=== PATIENT | male | born 1980 | race Caucasian/White ===

== ENCOUNTER 2018-06-03 14:30 | Emergency (ER) | payer MEDICARE ==
[~2018-06-03] VITALS: Ht 188 cm; Wt 145.5 kg
[2018-06-03 14:57] VITALS: Ht 188 cm; Wt 145.5 kg
[2018-06-03] MEDS ORDERED: ADDERALL 30 MG30 MG PO (15:02)
[2018-06-03] MEDS ORDERED: KLONOPIN1 MG PO (15:02)
[2018-06-03] MEDS ORDERED: KEPPRA1000 MG PO (15:02)
[2018-06-03] MEDS ORDERED: AMBIEN10 MG PO (15:03)
[2018-06-03 16:03] LABS: ALBUMIN 3.6 g/dL (3.4-5.0); ALKALINE PHOSPHATASE 164 U/L (46-116); ALT (SGPT) 27 U/L (10-68); BILIRUBIN - TOTAL 0.45 mg/dL (0.2-1.3); CALC OSMOLALITY 271 mosm/kg (275-300); CALCIUM 9.8 mg/dL (8.5-10.1); CARBON DIOXIDE 34.6 mmol/L (21.0-32.0); CHLORIDE - SERUM 101 mmol/L (98-107); CREATININE - SERUM 0.6 mg/dL (0.6-1.3); GLUCOSE 142 mg/dL (74-106); POTASSIUM - SERUM 4.9 mmol/L (3.5-5.1); PROTEIN - SERUM 8.9 g/dL (6.4-8.2); SODIUM 136 mmol/L (136-145); UREA NITROGEN 6 mg/dL (7-18); eGFR NON AFRICAN AMERICAN > 90 mL/min (90-120)
[2018-06-03 16:29] LABS: APPEARANCE CLEAR (CLEAR); BILIRUBIN NEGATIVE (NEGATIVE); COLOR YELLOW (YELLOW); GLUCOSE NEGATIVE (NEGATIVE); KETONE NEGATIVE (NEGATIVE); NITRITE NEGATIVE (NEGATIVE); PROTEIN NEGATIVE (NEGATIVE); UROBILINOGEN NORMAL (NORMAL); WHITE CELLS - URINE 0-5 /hpf (0-5)
[2018-06-03 16:30] LABS: BACTERIA FEW /hpf (NONE SEEN); EPITHELIAL CELLS OCC /hpf (0-5); RED CELLS - URINE RARE /hpf (0-5)
[2018-06-03 18:38] VITALS: BP 128/85
[2018-06-25] MEDS ORDERED: GLUCOPHAGE500 MG PO (10:57)
[2018-07-18 17:14] VITALS: Ht 188 cm; Wt 145.5 kg
== END 2018-06-03 18:25 | disposition home or self-care (01) ==
LOC: D.ER 14:30
PROVIDERS: Family Medicine
DX: K42.9 Umbilical hernia without obstruction or gangrene (principal); K57.90 Diverticulosis of intestine, part unspecified, without perforation or abscess without bleeding; B19.20 Unspecified viral hepatitis C without hepatic coma; Z87.820 Personal history of traumatic brain injury; G40.909 Epilepsy, unspecified, not intractable, without status epilepticus; F17.200 Nicotine dependence, unspecified, uncomplicated

== ENCOUNTER 2018-06-26 06:00 | Day surgery (SDC) | payer MEDICARE ==
[2018-06-25 11:58] LABS: HEMATOCRIT 44.5 % (42.0-54.0); MCH 28.6 pg (26.0-34.0); MCHC 33.7 g/dL (31.0-37.0); MCV 84.9 fL (80.0-100.0); MEAN PLATELET VOLUME 10.4 fL (7.4-10.4); RBC 5.24 10x6/uL (4.20-6.10); RDW 14.3 % (11.5-14.5); WBC 10.4 10x3/uL (4.8-10.8)
[2018-06-25 12:02] LABS: CALC OSMOLALITY 278 mosm/kg (275-300); CALCIUM 8.2 mg/dL (8.5-10.1); CARBON DIOXIDE 30.7 mmol/L (21.0-32.0); CHLORIDE - SERUM 104 mmol/L (98-107); CREATININE - SERUM 0.8 mg/dL (0.6-1.3); GLUCOSE 168 mg/dL (74-106); POTASSIUM - SERUM 4.4 mmol/L (3.5-5.1); SODIUM 138 mmol/L (136-145); UREA NITROGEN 9 mg/dL (7-18); eGFR NON AFRICAN AMERICAN > 90 mL/min (90-120)
[~2018-06-26] VITALS: Ht 188 cm; Wt 151.5 kg
[~2018-06-26 06:00] MED LIST: ADDERALL 30 MG30 MG PO; AMBIEN10 MG PO; GLUCOPHAGE500 MG PO; KEPPRA1000 MG PO; KLONOPIN1 MG PO
[2018-06-26 07:30] VITALS: BP 122/61; Ht 188 cm; Wt 151.5 kg
[2018-06-26] MEDS ORDERED: CYCLOBENZAPRINE10 MG PO (09:07)
[2018-06-26] MEDS ORDERED: HYDROCODON-ACE1 EAC7 PO (09:07)
== END 2018-06-26 12:15 | disposition home or self-care (01) ==
LOC: D.OPS 06:00 → D.PAN 09:45 → D.OPS 12:15
PROVIDERS: Anesthesiology
DX: K43.6 Other and unspecified ventral hernia with obstruction, without gangrene (principal); Z01.812 Encounter for preprocedural laboratory examination

== ENCOUNTER 2018-07-18 16:38 | Emergency (ER) | payer MEDICARE ==
[~2018-07-18] VITALS: Ht 188 cm; Wt 154.5 kg
[~2018-07-18 16:38] MED LIST changes: +CYCLOBENZAPRINE10 MG PO; +HYDROCODON-ACE1 EAC7 PO
[2018-07-18 17:14] VITALS: Ht 188 cm; Wt 154.5 kg
[2018-07-18 17:50] LABS: BASOPHILS 0.2 % (0-2); EOSINOPHILS 1.3 % (0-7); HEMATOCRIT 46.9 % (42.0-54.0); HEMOGLOBIN 16.4 g/dL (13.5-17.5); IMMATURE GRANULOCYTES 0.2 % (0-5); LYMPHOCYTES 27.5 % (15-50); MCH 29.1 pg (26.0-34.0); MCV 83.2 fL (80.0-100.0); MEAN PLATELET VOLUME 10.2 fL (7.4-10.4); MONOCYTES 6.4 % (2-11); NEUTROPHILS 64.4 % (40-80); PLATELET COUNT 214 10x3/uL (130-400); RBC 5.64 10x6/uL (4.20-6.10); RDW 13.5 % (11.5-14.5)
[2018-07-18 18:07] LABS: ALBUMIN 3.7 g/dL (3.4-5.0); ALKALINE PHOSPHATASE 145 U/L (46-116); ALT (SGPT) 20 U/L (10-68); BILIRUBIN - TOTAL 0.41 mg/dL (0.2-1.3); CALC OSMOLALITY 278 mosm/kg (275-300); CALCIUM 8.9 mg/dL (8.5-10.1); CARBON DIOXIDE 33.8 mmol/L (21.0-32.0); CHLORIDE - SERUM 101 mmol/L (98-107); CREATININE - SERUM 0.9 mg/dL (0.6-1.3); POTASSIUM - SERUM 4.2 mmol/L (3.5-5.1); PROTEIN - SERUM 8.8 g/dL (6.4-8.2); SODIUM 141 mmol/L (136-145); UREA NITROGEN 8 mg/dL (7-18); eGFR NON AFRICAN AMERICAN > 90 mL/min (90-120)
[2018-07-18 18:09] LABS: GLUCOSE 106 mg/dL (74-106)
[2018-07-18 21:38] VITALS: BP 126/90
== END 2018-07-18 21:38 | disposition home or self-care (01) ==
LOC: D.ER 16:38
PROVIDERS: Family Medicine
DX: I80.9 Phlebitis and thrombophlebitis of unspecified site (principal); E11.9 Type 2 diabetes mellitus without complications; G40.909 Epilepsy, unspecified, not intractable, without status epilepticus

== ENCOUNTER 2018-09-08 20:40 | Emergency (ER) | payer MEDICARE ==
[~2018-09-08] VITALS: Ht 188 cm; Wt 158.2 kg
[2018-09-08 20:55] VITALS: Ht 188 cm; Wt 158.2 kg
[2018-09-08] MEDS ORDERED: CYCLOBENZAPRINE10 MG PO (21:54)
[2018-09-08] MEDS ORDERED: ULTRAM50 MG PO (21:54)
[2018-09-08 22:19] VITALS: BP 131/81
== END 2018-09-08 22:20 | disposition home or self-care (01) ==
LOC: D.ER 20:40
DX: S80.02XA Contusion of left knee, initial encounter (principal); W18.31XA Fall on same level due to stepping on an object, initial encounter; Y93.89 Activity, other specified; Y92.019 Unspecified place in single-family (private) house as the place of occurrence of the external cause; S63.501A Unspecified sprain of right wrist, initial encounter; G40.909 Epilepsy, unspecified, not intractable, without status epilepticus; E11.9 Type 2 diabetes mellitus without complications

== ENCOUNTER 2018-12-19 20:10 | Emergency (ER) | payer MEDICARE ==
[~2018-12-19] VITALS: Ht 188 cm; Wt 160.1 kg
[~2018-12-19 20:10] MED LIST changes: +ULTRAM50 MG PO
[2018-12-19 20:24] VITALS: Ht 188 cm; Wt 160.1 kg
[2018-12-20] MEDS ORDERED: ROBAXIN500 MG PO (00:24)
[2018-12-20 00:47] VITALS: BP 124/78
== END 2018-12-20 00:47 | disposition home or self-care (01) ==
LOC: D.ER 20:10
DX: S49.92XA Unspecified injury of left shoulder and upper arm, initial encounter (principal); S90.31XA Contusion of right foot, initial encounter; W20.8XXA Other cause of strike by thrown, projected or falling object, initial encounter; Y93.89 Activity, other specified; Y92.019 Unspecified place in single-family (private) house as the place of occurrence of the external cause; G40.909 Epilepsy, unspecified, not intractable, without status epilepticus; E11.9 Type 2 diabetes mellitus without complications; F17.200 Nicotine dependence, unspecified, uncomplicated

== ENCOUNTER 2019-01-16 22:17 | Emergency (ER) | payer MEDICARE ==
[~2019-01-16] VITALS: Ht 188 cm; Wt 159.1 kg
[~2019-01-16 22:17] MED LIST changes: +ROBAXIN500 MG PO
[2019-01-16 22:34] VITALS: Ht 188 cm; Wt 159.1 kg
[2019-01-16] MEDS ORDERED: TAMIFLU75 MG PO (23:19)
[2019-01-16] MEDS ORDERED: PHENERGAN DM SYR5 ML PO (23:19)
[2019-01-16 23:26] VITALS: BP 142/78
== END 2019-01-16 23:28 | disposition home or self-care (01) ==
LOC: D.ER 22:17
DX: Z20.9 Contact with and (suspected) exposure to unspecified communicable disease (principal)

== ENCOUNTER 2019-07-26 04:06 | Emergency (ER) | payer MEDICARE, MEDICAID ==
[~2019-07-26] VITALS: Ht 188 cm; Wt 147.7 kg
[~2019-07-26 04:06] MED LIST changes: +PHENERGAN DM SYR5 ML PO; +TAMIFLU75 MG PO
[2019-07-26 04:11] VITALS: BP 127/71; Ht 188 cm; Wt 147.7 kg
[2019-07-26 04:59] LABS: BASOPHILS 0.2 % (0-2); EOSINOPHILS 1.7 % (0-7); HEMATOCRIT 41.3 % (42.0-54.0); HEMOGLOBIN 14.3 g/dL (13.5-17.5); IMMATURE GRANULOCYTES 0.3 % (0-5); LYMPHOCYTES 26.3 % (15-50); MCH 28.1 pg (26.0-34.0); MCHC 34.6 g/dL (31.0-37.0); MCV 81.3 fL (80.0-100.0); MONOCYTES 5.1 % (2-11); NEUTROPHILS 66.4 % (40-80); PLATELET COUNT 216 10x3/uL (130-400); RBC 5.08 10x6/uL (4.20-6.10); RDW 14.1 % (11.5-14.5); WBC 13.2 10x3/uL (4.8-10.8)
[2019-07-26 05:17] LABS: ALBUMIN 3.6 g/dL (3.4-5.0); ALKALINE PHOSPHATASE 135 U/L (46-116); ALT (SGPT) 20 U/L (10-68); BILIRUBIN - TOTAL 0.31 mg/dL (0.2-1.3); CALC OSMOLALITY 282 mosm/kg (275-300); CALCIUM 8.9 mg/dL (8.5-10.1); CARBON DIOXIDE 31.1 mmol/L (21.0-32.0); CHLORIDE - SERUM 102 mmol/L (98-107); CREATININE - SERUM 0.6 mg/dL (0.6-1.3); GLUCOSE 120 mg/dL (74-106); POTASSIUM - SERUM 3.9 mmol/L (3.5-5.1); PROTEIN - SERUM 7.4 g/dL (6.4-8.2); SODIUM 142 mmol/L (136-145); UREA NITROGEN 10 mg/dL (7-18); eGFR NON AFRICAN AMERICAN > 90 mL/min (90-120)
[2019-07-26 05:32] LABS: CKMB 0.6 U/L (0.0-3.6); CREATINE KINASE 84 UL (21-232); MAGNESIUM - SERUM 1.9 mg/dL (1.8-2.4); THYROID STIMULATING HORMONE 5.01 uIU/mL (0.36-3.74); TROPONIN-I < 0.017 ng/mL (0.000-0.060)
[2019-07-26 05:42] LABS: APPEARANCE CLEAR (CLEAR); BILIRUBIN NEGATIVE (NEGATIVE); COLOR YELLOW (YELLOW); GLUCOSE NEGATIVE (NEGATIVE); KETONE NEGATIVE (NEGATIVE); NITRITE NEGATIVE (NEGATIVE); PROTEIN NEGATIVE (NEGATIVE); UROBILINOGEN NORMAL (NORMAL)
[2019-07-26] MEDS ORDERED: SYNTHROID25 MCG PO (07:04)
== END 2019-07-26 08:41 | disposition home or self-care (01) ==
LOC: D.ER 04:06
PROVIDERS: Family Medicine
DX: M54.5 Low back pain (principal); M79.605 Pain in left leg; R42 Dizziness and giddiness

== ENCOUNTER 2019-11-09 19:08 | Emergency (ER) | payer MEDICARE, MEDICAID ==
[~2019-11-09] VITALS: Ht 188 cm; Wt 158.8 kg
[~2019-11-09 19:08] MED LIST changes: +SYNTHROID25 MCG PO
[2019-11-09 19:35] VITALS: BP 157/76; Ht 188 cm; Wt 158.8 kg
[2019-11-09] MEDS ORDERED: GLUCOTROL 5 MG T5 MG PO (19:39)
[2019-11-09] MEDS ORDERED: KLONOPIN1 MG PO (19:39)
[2019-11-09 20:04] LABS: APPEARANCE CLEAR (CLEAR); BILIRUBIN NEGATIVE (NEGATIVE); COLOR YELLOW (YELLOW); GLUCOSE NEGATIVE (NEGATIVE); KETONE NEGATIVE (NEGATIVE); NITRITE NEGATIVE (NEGATIVE); PROTEIN NEGATIVE (NEGATIVE); UROBILINOGEN NORMAL (NORMAL)
[2019-11-09 20:46] LABS: BASOPHILS 0.2 % (0-2); EOSINOPHILS 1.7 % (0-7); HEMATOCRIT 46.3 % (42.0-54.0); HEMOGLOBIN 15.8 g/dL (13.5-17.5); IMMATURE GRANULOCYTES 0.2 % (0-5); LYMPHOCYTES 24.5 % (15-50); MCH 28.6 pg (26.0-34.0); MCHC 34.1 g/dL (31.0-37.0); MCV 83.9 fL (80.0-100.0); MEAN PLATELET VOLUME 10.1 fL (7.4-10.4); MONOCYTES 3.1 % (2-11); NEUTROPHILS 70.3 % (40-80); PLATELET COUNT 235 10x3/uL (130-400); RBC 5.52 10x6/uL (4.20-6.10); RDW 13.8 % (11.5-14.5); WBC 13.3 10x3/uL (4.8-10.8)
[2019-11-09 20:54] LABS: CALC OSMOLALITY 279 mosm/kg (275-300); CARBON DIOXIDE 30.5 mmol/L (21.0-32.0); CHLORIDE - SERUM 104 mmol/L (98-107); GLUCOSE 89 mg/dL (74-106); POTASSIUM - SERUM 3.5 mmol/L (3.5-5.1); SODIUM 142 mmol/L (136-145); UREA NITROGEN 8 mg/dL (7-18); eGFR NON AFRICAN AMERICAN 89 mL/min (90-120)
[2019-11-09 20:59] LABS: ALBUMIN 3.6 g/dL (3.4-5.0); ALKALINE PHOSPHATASE 138 U/L (46-116); ALT (SGPT) 31 U/L (10-68); BILIRUBIN - TOTAL 0.45 mg/dL (0.2-1.3); PROTEIN - SERUM 8.3 g/dL (6.4-8.2)
== END 2019-11-09 22:25 | disposition home or self-care (01) ==
LOC: D.ER 19:08
PROVIDERS: Family Medicine
DX: F43.9 Reaction to severe stress, unspecified (principal); R53.81 Other malaise; E66.01 Morbid (severe) obesity due to excess calories; E11.9 Type 2 diabetes mellitus without complications; Z79.84 Long term (current) use of oral hypoglycemic drugs